=== PATIENT | female | born 1995 | race Caucasian/White ===

== ENCOUNTER 2018-01-06 03:47 | Emergency (ER) | payer BC, OTHER ==
[2018-01-06] MEDS ORDERED: diPHENhydraMINE IV* 50 MG/ML 1 ml VIAL (BENADRYL) IM ONE (05:21)
[2018-01-06] MEDS ORDERED: NS 0.9% 1000 ML* 1,000 ML IV ONE (05:21)
[2018-01-06] MEDS ORDERED: Ketorolac INJ* 30 MG/ML 1 ML VIAL IV ONE (05:21)
[2018-01-06] MEDS ORDERED: Dexamethasone IV* 4 MG/ML 1 ML (4 MG) IV SLOW PU ONE (05:21)
[2018-01-06] MEDS ORDERED: Metoclopramide IV* 5 MG/ML 2 ML VIAL IV SLOW PU ONE (05:22)
[2018-01-06] MEDS ORDERED: Magnesium Sulfate 2 GM IV* 2 GM/50 ML BAG IVPB ONE (05:23)
--- NOTE | 2018-01-06 06:46 | ED ---
Taz Irvin Tiffany, scribed for Anna Marie Frazier MD on 01/06/18 at 0523 . Headache - HPI Summary HPI Summary: 22 year old F presents to [facility] c/o headache since four days ago. Described as throbbing on her forehead. The patient rates the pain 7/10 in severity. Symptoms aggravated light and alleviated by nothing. Reports nausea, photophobia. Denies vomiting. Was seen for and medicated for headache yesterday at [facility]. Has history of migraines. - History Of Current Complaint Chief Complaint: EDHeadache Stated Complaint: HEADACHE Hx Obtained From: Patient Hx Last Menstrual Period: 12/23/17 Onset/Duration: Started days ago - 4 days ago, Still Present Timing: Constant Character: Throbbing Location of Headache: Other: - On forehead Aggravating Factor: Bright Lights Allevating Factors: Nothing Associated Signs And Symptoms: Negative - Vomiting, Nausea, Other (Noted In Comments) - Photophobia - Allergies/Home Medications Allergies/Adverse Reactions: Allergies Allergy/AdvReac Type Severity Reaction Status Date / Time No Known Allergies Allergy Verified 01/06/18 03:56 PMH/Surg Hx/FS Hx/Imm Hx Previously Healthy: No Endocrine/Hematology History: Denies: Hx Diabetes, Hx Thyroid Disease Cardiovascular History: Denies: Hx Hypertension, Hx Pacemaker/ICD Respiratory History: Denies: Hx Asthma, Hx Chronic Obstructive Pulmonary Disease (COPD) GI History: Denies: Hx Ulcer Musculoskeletal History: Reports: Other Musculoskeletal History - patellofemoral syndrome Sensory History: Denies: Hx Hearing Aid Neurological History: Reports: Hx Headaches, Hx Migraine Psychiatric History: Denies: Hx Panic Disorder - Immunization History Date of Tetanus Vaccine: States had it for [employer] program last year Infectious Disease History: No Infectious Disease History: Denies: Hx Hepatitis, Hx Human Immunodeficiency Virus (HIV), Traveled Outside the [place] in Last 30 Days - Family History Known Family History: Positive: None - Social History Occupation: Employed Full-time Alcohol Use: None Hx Substance Use: No Substance Use Type: Reports: None Hx Tobacco Use: No Smoking Status (MU): Never Smoked Tobacco Review of Systems Positive: Photophobia Positive: Nausea. Negative: Vomiting Positive: Headache All Other Systems Reviewed And Are Negative: Yes Physical Exam - Summary Physical Exam Summary: VITAL SIGNS: Reviewed. GENERAL: Patient is a well-developed and nourished female who is lying comfortable in the stretcher. Patient is not in any acute respiratory distress. HEAD AND FACE: No signs of trauma. No ecchymosis, hematomas or skull depressions. No sinus tenderness. EYES: PERRLA, EOMI x 2, No injected conjunctiva, no nystagmus. EARS: Hearing grossly intact. Ear canals and tympanic membranes are within normal limits. MOUTH: Oropharynx within normal limits. NECK: Supple, trachea is midline, no adenopathy, no JVD, no carotid bruit, no c- spine tenderness, neck with full ROM. CHEST: Symmetric, no tenderness at palpation LUNGS: Clear to auscultation bilaterally. No wheezing or crackles. CVS: Regular rate and rhythm, S1 and S2 present, no murmurs or gallops appreciated. ABDOMEN: Soft, non-tender. No signs of distention. No rebound no guarding, and no masses palpated. Bowel sounds are normal. EXTREMITIES: FROM in all major joints, no edema, no cyanosis or clubbing. NEURO: Alert and oriented x 3. No acute neurological deficits. Speech is normal and follows commands. SKIN: Dry and warm Triage Information Reviewed: Yes Vital Signs On Initial Exam: Initial Vitals Temp Pulse Resp BP Pulse Ox 98.8 F 89 15 168/97 100 01/06/18 03:53 01/06/18 03:53 01/06/18 03:53 01/06/18 03:53 01/06/18 03:53 Vital Signs Reviewed: Yes Diagnostics - Vital Signs Vital Signs Temp Pulse Resp BP Pulse Ox 01/06/18 03:53 98.8 F 89 15 168/97 100 - Laboratory Lab Statement: Any lab studies that have been ordered have been reviewed, and results considered in the medical decision making process. Re-Evaluation - Re-Evaluation First Eval Re-Evaluation Time: 06:38 Change: Improved Comment: Patient feels better. Agreeable to discharge. Headache Course/Dx - Course Course Of Treatment: 22 year old F presenting to [facility] c/o headache since four days ago. Was seen for and medicated for headache yesterday at [facility]. Has history of migraines. Patient feels better after medication. Will be discharged with follow up from neurology in 1 day. She is agreeable to discharge. - Diagnoses Provider Diagnoses: Headache Discharge - Discharge Plan Condition: Stable Disposition: HOME Patient Education Materials: Migraine Headache (ED) Referrals: Leticia Fisher MD [Primary Care Provider] - Hussein Yuan MD [Medical Doctor] - 1 Day Additional Instructions: Follow up with Dr. Yuan (neurology) on Sunday, January 07. Return to Emergency Department for new or worsening symptoms. The documentation as recorded by the Taz lopez Tiffany accurately reflects the service I personally performed and the decisions made by , Anna Marie Frazier MD.
[2018-01-06 06:54] VITALS: BP 123/68
== END 2018-01-06 06:54 | disposition home or self-care (01) ==
LOC: ED 03:47
DX: R51 Headache (principal); R11.0 Nausea; H53.149 Visual discomfort, unspecified
CPT/HCPCS: 96372; 96374; 96375; 99283; J1100; J1200; J1885; J2765; J3475